=== PATIENT | female | born 1965 | race Hispanic/Latino ===

== ENCOUNTER 2020-03-29 14:34 | Emergency (ER) | payer SELFPAY ==
[~2020-03-29] VITALS: Ht 157.5 cm; Wt 70.0 kg
[2020-03-29] MEDS ORDERED: BACTROBAN TOP (15:23)
[2020-03-29] MEDS ORDERED: KEFLEX500 M1 PO (15:23)
[2020-03-29 15:42] VITALS: BP 159/85
== END 2020-03-29 15:42 | disposition home or self-care (01) | DRG 935 ==
LOC: ED 14:34
DX: T22.00XA Burn of unspecified degree of shoulder and upper limb, except wrist and hand, unspecified site, initial encounter (principal); I10 Essential (primary) hypertension; E11.9 Type 2 diabetes mellitus without complications; X08.8XXA Exposure to other specified smoke, fire and flames, initial encounter